=== PATIENT | female | born 1985 | race Caucasian/White ===

== ENCOUNTER 2024-05-30 16:57 | Emergency (ER) | payer MEDICAID ==
[~2024-05-30 16:57] MED LIST: MULTI VIT PO
== END 2024-05-30 18:30 | disposition left against medical advice (07) | DRG 951 ==
LOC: ED 16:57 → LWOBS 18:29
DX: Z53.21 Procedure and treatment not carried out due to patient leaving prior to being seen by health care provider (principal)

== ENCOUNTER 2024-06-28 08:16 | Emergency (ER) | payer SELFPAY ==
[~2024-06-28] VITALS: Ht 167.6 cm; Wt 104.0 kg
[2024-06-28 08:23] VITALS: BP 129/78
[2024-06-28 08:31] VITALS: BP 121/99
[2024-06-28 08:57] VITALS: BP 119/79
[2024-06-28 08:58] LABS: URINE BILIRUBIN - DIPSTICK Negative (NEGATIVE); URINE BLOOD DIPSTICK Negative (NEGATIVE); URINE GLUCOSE - DIPSTICK Negative (NEGATIVE); URINE KETONE Negative (NEGATIVE); URINE LEUK ESTERASE Negative (NEGATIVE); URINE NITRITE - DIPSTICK Negative (Negative); URINE PH 5.5 (4.5-8.0); URINE PROTEIN - DIPSTICK Negative (NEG-TRACE); URINE SPECIFIC GRAVITY <=1.005; URINE UROBILINOGEN - DIPSTICK 0.2 E.U./dL (0.2)
[2024-06-28 08:59] LABS: URINE COLOR Straw
[2024-06-28 08:59] LABS: BASO% 0.5 % (0-3); EOS% 5.2 % (0-8); HEMATOCRIT 41.8 % (37.0-47.0); HEMOGLOBIN 13.7 g/dl (12.0-16.0); IMMATURE GRANULOCYTES 0.3 % (0.0-5.0); LYMPH% 22.4 % (15-41); MEAN CELL VOLUME 88.9 fL CALC (80.0-100.0); MEAN CORPUSCULAR HGB 29.1 pG CALC (26.0-32.0); MEAN CORPUSCULAR HGB CONC 32.8 g/dL CAL (32.0-36.0); NEUT# 9.29 thou/uL (2.00-7.15); NEUT% 66.6 % (42-76); RED BLOOD COUNT 4.7 mill/uL (4.20-5.60); RED CELL DISTRI WIDTH 12.9 % (11.5-15.5)
[2024-06-28 09:15] VITALS: BP 126/82
[2024-06-28 09:17] LABS: ALBUMIN 4.6 g/dL (3.2-5.0); CREATININE 0.8 mg/dL (0.5-1.0); POTASSIUM 4.2 mmol/l (3.5-5.1)
[2024-06-28 09:48] LABS: TSH, 3RD GENERATION 2.36 uIU/mL (0.47 - 4.68)
[2024-06-28 10:54] VITALS: BP 129/92
== END 2024-06-28 11:00 | disposition home or self-care (01) | DRG 880 ==
LOC: ED 08:16
PROVIDERS: Family Medicine
DX: F41.9 Anxiety disorder, unspecified (principal); G93.0 Cerebral cysts; F17.200 Nicotine dependence, unspecified, uncomplicated; Z90.710 Acquired absence of both cervix and uterus

== ENCOUNTER 2025-01-05 08:57 | Emergency (ER) | payer SELFPAY ==
[2025-01-05] VITALS (8 sets, daily range): BP systolic 118–168; BP diastolic 57–108
[~2025-01-05] VITALS: Ht 167.6 cm; Wt 108.0 kg
[2025-01-05 11:26] LABS: BASO% 0.9 % (0-3); EOS% 11.9 % (0-8); HEMATOCRIT 43.3 % (37.0-47.0); HEMOGLOBIN 14.2 g/dl (12.0-16.0); IMMATURE GRANULOCYTES 0.2 % (0.0-5.0); LYMPH% 31.5 % (15-41); MEAN CELL VOLUME 88.4 fL CALC (80.0-100.0); MEAN CORPUSCULAR HGB CONC 32.8 g/dL CAL (32.0-36.0); MONO% 4.9 % (2-13); NEUT# 5.78 thou/uL (2.00-7.15); NEUT% 50.6 % (42-76); RED BLOOD COUNT 4.9 mill/uL (4.20-5.60)
[2025-01-05 11:27] LABS: URINE BILIRUBIN - DIPSTICK Negative (NEGATIVE); URINE BLOOD DIPSTICK Negative (NEGATIVE); URINE GLUCOSE - DIPSTICK Negative (NEGATIVE); URINE KETONE Negative (NEGATIVE); URINE LEUK ESTERASE Negative (NEGATIVE); URINE NITRITE - DIPSTICK Negative (Negative); URINE PH 5.5 (4.5-8.0); URINE PROTEIN - DIPSTICK Negative (NEG-TRACE); URINE SPECIFIC GRAVITY <=1.005; URINE UROBILINOGEN - DIPSTICK 0.2 E.U./dL (0.2)
[2025-01-05 11:41] LABS: URINE COLOR Yellow
[2025-01-05 11:44] LABS: ALBUMIN 4.3 g/dL (3.2-5.0); BILIRUBIN, TOTAL 0.7 mg/dL (0.02-1.3); CREATININE 0.7 mg/dL (0.5-1.0); POTASSIUM 4.9 mmol/l (3.5-5.1); TOTAL PROTEIN 7.3 g/dL (6.3-8.2)
[2025-01-05] MEDS ORDERED: GADOPICLENOL (VUEWAY) 0.5 MM/ML 3.75MM/7.5ML VIAL IV ONE (12:50)
== END 2025-01-05 13:18 | disposition left against medical advice (07) | DRG 93 ==
LOC: ED 08:57
PROVIDERS: Emergency Medicine
DX: R20.2 Paresthesia of skin (principal); F17.200 Nicotine dependence, unspecified, uncomplicated; Z53.29 Procedure and treatment not carried out because of patient's decision for other reasons